=== PATIENT | male | born 1950 | race Caucasian/White ===

== ENCOUNTER → 2019-07-25 13:43 | Outpatient (BNVA) | payer MEDICARE, OTHER, SELFPAY | PROVIDERS: Family Provider Family Medicine; PCP Family Medicine; Referring Provider Family Medicine; Visit Provider Internal Medicine Rheumatology | DX: L40.59 Other psoriatic arthropathy (principal); L40.0 Psoriasis vulgaris; Z79.899 Other long term (current) drug therapy; Z79.52 Long term (current) use of systemic steroids | CPT/HCPCS: 99213 ==

== ENCOUNTER 2019-12-13 14:55 | Outpatient (CLI) | payer MEDICARE, OTHER, SELFPAY ==
--- NOTE | 2019-12-13 15:05 | MR_ITS ---
WS: [id number] MRI CERVICAL SPINE HISTORY: CERVICAL RADICULITIS, LEFT ARM WEAKNESS COMPARISON: 01/22/2014 Prior anterior cervical fusion at C5-C6. Interbody spacer at C5-6. Moderate disc space narrowing at C 6-7. There is slight increase in the cervical lordosis. No fractures. Signal within the cervical cord is normal. Visualized posterior fossa is unremarkable. Craniocervical junction, C1 and C2 relationship, odontoid process and soft tissues are normal. C2-C3: Mild small foraminal osteophytes without stenosis. C3-C4: Mild osteophytic ridging with a central disc osteophyte encroaching on the ventral thecal sac. Facet joint arthropathy and ligamentum flavum hypertrophy encroaching posteriorly. There is signific ant central with mild bilateral foraminal stenosis. Progressed since 2013. C4-C5: Small bilateral foraminal osteophytes. Mild stenosis on the LEFT. C5-C6: Mild osteophytic ridging and disc bulging. Small central disc protrusion contacting the ventra l thecal sac. Mild central and bilateral foraminal stenosis. C6-C7: Osteophytic ridging and facet joint arthritis. Mild central and bilateral foraminal stenosis. C7-T1: Normal. Paraspinal soft tissue are normal. MR/MR cervical spin wo con* [id number] IMPRESSION: 1. Severe central stenosis with mild bilateral foraminal stenosis at C3-4 with progression since 2013. 2. Prior anterior cervical fusion with interbody spacer at C5-6 is stable. 3. Mild central and bilateral foraminal stenosis at C5-6 and C6-7.
== END 2019-12-13 14:56 | disposition home or self-care (01) ==
LOC: RADSHAW 14:55
PROVIDERS: PCP Family Medicine; Visit Provider Physical Medicine & Rehabilitation
DX: M54.12 Radiculopathy, cervical region (principal); R29.898 Other symptoms and signs involving the musculoskeletal system; R53.1 Weakness; M48.02 Spinal stenosis, cervical region; M43.22 Fusion of spine, cervical region
CPT/HCPCS: 72141

== ENCOUNTER → 2020-04-01 10:55 | Outpatient (BNVA) | payer MEDICARE, OTHER, SELFPAY | PROVIDERS: PCP Family Medicine; Visit Provider Internal Medicine Rheumatology | DX: Z79.899 Other long term (current) drug therapy (principal) | CPT/HCPCS: 36415; 80076; 82306; 82565; 85025; 85651; 86140 ==

== ENCOUNTER → 2020-05-19 13:10 | Outpatient (BNVA) | payer MEDICARE, OTHER, SELFPAY | PROVIDERS: PCP Family Medicine; Visit Provider Internal Medicine Rheumatology | DX: L40.59 Other psoriatic arthropathy (principal); L40.0 Psoriasis vulgaris; Z79.899 Other long term (current) drug therapy; Z79.52 Long term (current) use of systemic steroids; K13.0 Diseases of lips; R68.2 Dry mouth, unspecified; Z87.891 Personal history of nicotine dependence | CPT/HCPCS: 99214 ==

== ENCOUNTER → 2020-09-07 09:29 | Outpatient (BNVA) | payer MEDICARE, OTHER, SELFPAY | PROVIDERS: PCP Family Medicine; Visit Provider Internal Medicine Rheumatology | DX: Z79.899 Other long term (current) drug therapy (principal); L40.0 Psoriasis vulgaris | CPT/HCPCS: 36415; 80076; 82565; 85025; 86140 ==

== ENCOUNTER 2020-09-08 10:09 | Outpatient (CLI) | payer MEDICARE, BC, SELFPAY ==
--- NOTE | 2020-09-08 10:23 | XRR_ITS ---
PROCEDURE INFORMATION: Exam: XR Cervical Spine Exam date and time: 09/08/2020 10:25 AM Age: 70 years old Clinical indication: Condition or disease; Other: Arthrodesis status/s/p fusion; Prior surgery TECHNIQUE: Imaging protocol: XR of the cervical spine. Views: 2 or 3 views. COMPARISON: MR cervical spin wo con* [id number] 12/13/2019 3:19 PM FINDINGS: Bones/joints: The patient has undergone surgical anterior fusion at C3-C4 and C5-C6 with anterior metal plate and vertebral body screws. Position and alignment appears satisfactory. No fracture or other acute abnormalities are seen. Chronic degenerative changes are present predominantly at the L6-7 disc space and in the cervical facet joints. Soft tissues: Unremarkable. XR/XR cervical spine 3V* [id number] IMPRESSION: 1. Satisfactory appearance of the anterior surgical fusion at C3-C4 and C5-C6. 2. Chronic degenerative disease. No acute abnormality.
== END 2020-09-08 10:10 | disposition home or self-care (01) ==
PROVIDERS: PCP Family Medicine; Visit Provider Physician Assistant Surgical
DX: Z98.1 Arthrodesis status (principal)
CPT/HCPCS: 72040

== ENCOUNTER 2021-01-06 09:55 | Outpatient (CLI) | payer MEDICARE, BC, SELFPAY ==
--- NOTE | 2021-01-06 10:15 | MR_ITS ---
WS: [id number] MRI LUMBAR SPINE NONCONTRAST TECHNIQUE: Sagittal T1, T2 and STIR imaging. Axial T1 and T2 imaging. CLINICAL INFORMATION: ROUTINE, LOW BACK AND LOWER EXTREMITY PAIN; LBP; RADICULOPAT COMPARISON: MRI 5 FINDINGS: Mild lumbar curve. No acute compression. Disc bulging worse at L3-L4 L4-L5. Schmorl's nodes in the lo wer thoracic spine. L1-L2: No significant disc bulging. Spinal canal and foramen are patent. L2-L3: Mild annular bulging. Slight effacement of ventral thecal sac. Mild left and no significant ri ght foraminal narrowing. Mild facet arthropathy. L3-L4: Mild disc bulging with osteophytic ridging. Right pericentral disc extrusion with caudal migra tion of disc material in the subarticular recess. Moderate central canal stenosis at this level with moderate facet arthropathy and ligament flavum hypertrophy. Impingement traversing L4 nerve roots yumiko aterally. Disc extrusion impinges the traversing right L4 nerve root. Disc extrusion measures 10.9 x 6.4 mm. Right foraminal protrusion with mild to moderate right and mild left foraminal narrowing. L4-L5: Mild disc bulging with a shallow left pericentral protrusion. Mild to moderate central canal s tenosis with impingement traversing left L5 nerve root. Moderate facet arthropathy. Moderate left and no significant right foraminal narrowing. L5-S1: Annular bulging with a tiny shallow central protrusion. Slight effacement of ventral thecal sa c. Moderate facet arthropathy. Moderate bilateral foraminal narrowing left greater than right. Postoperative changes ACDF in the cervical spine partially visualized at C3-C4 and C5-C6. Compared to 2014 disc bulging is progressed at L3-4 with more loss of disc space height. L3-4 disc ex trusion is new. Left pericentral L4-5 disc protrusion is similar compared to 2014. MR/MR lumbar spine wo con* [id number] IMPRESSION: 1. Mild lumbar curve. No acute compression. 2. New right pericentral disc extrusion L3-4 with inferior migration of disc m aterial. This impinges the right subarticular recess and traversing right L4 ne rve root. Moderate central canal stenosis. Disc extrusion measures 10.9 x 6.4 m m and extends to the inferior endplate of L4. 3. Shallow left pericentral protrusion L4-5 with mild to moderate central [place] l stenosis and impingement traversing left L5 nerve root. This is similar to 20 14. 4. Multilevel mild to moderate foraminal narrowing worse at right L3-4, left L 4-5, and bilateral L5-S1.
== END 2021-01-06 09:56 | disposition home or self-care (01) ==
PROVIDERS: PCP Family Medicine; Visit Provider Physician Assistant Surgical
DX: M54.10 Radiculopathy, site unspecified (principal); M51.26 Other intervertebral disc displacement, lumbar region; M48.02 Spinal stenosis, cervical region
CPT/HCPCS: 72148

== ENCOUNTER → 2021-08-04 10:43 | Outpatient (BNVA) | payer MEDICARE, BC, SELFPAY | PROVIDERS: PCP Family Medicine; Visit Provider Podiatrist Foot & Ankle Surgery | DX: M19.072 Primary osteoarthritis, left ankle and foot (principal); M19.071 Primary osteoarthritis, right ankle and foot; M79.671 Pain in right foot; M79.672 Pain in left foot | CPT/HCPCS: 73630 ==

== ENCOUNTER 2022-08-04 14:23 | Outpatient (CLI) | payer MEDICARE, BC, SELFPAY ==
--- NOTE | 2022-08-04 | XR_ITS ---
WS: [id number] Cervical spine, AP view, lateral views in flexion, extension and neutral position, 08/04/2022 Clinical Data: CERVICALGIA Comparison: Cervical spine, 09/08/2020 Findings: The anterior cervical disc fusion at C3-C4 with artificial disc and the anterior cervical d isc fusion at C5-C6 with an artificial disc remain the same. There is no prevertebral soft tissue swe lling. On flexion and extension the fusions are stable. XR/XR cervical spine 4-5V [id number] Impression: 1. Anterior cervical disc fusions at C3-C4 and C5-C6. 2. The anterior cervical disc fusions are stable on flexion and extension.
== END 2022-08-04 14:24 | disposition home or self-care (01) ==
PROVIDERS: PCP Family Medicine; Visit Provider Nurse Practitioner Family
DX: M43.22 Fusion of spine, cervical region (principal); Z98.1 Arthrodesis status
CPT/HCPCS: 72050

== ENCOUNTER → 2023-02-02 12:37 | Outpatient (BNVA) | payer MEDICARE, BC, SELFPAY | PROVIDERS: PCP Family Medicine; Visit Provider Podiatrist Foot & Ankle Surgery | DX: L40.59 Other psoriatic arthropathy (principal); M72.2 Plantar fascial fibromatosis; G57.63 Lesion of plantar nerve, bilateral lower limbs; M20.41 Other hammer toe(s) (acquired), right foot; M20.42 Other hammer toe(s) (acquired), left foot | CPT/HCPCS: 73630; 99213 ==

== ENCOUNTER → 2023-04-03 12:52 | Outpatient (BNVA) | payer MEDICARE, BC, SELFPAY | PROVIDERS: PCP Family Medicine; Visit Provider Podiatrist Foot & Ankle Surgery | DX: G57.63 Lesion of plantar nerve, bilateral lower limbs (principal); M72.2 Plantar fascial fibromatosis; M76.72 Peroneal tendinitis, left leg; L40.59 Other psoriatic arthropathy; M20.41 Other hammer toe(s) (acquired), right foot; M20.42 Other hammer toe(s) (acquired), left foot | CPT/HCPCS: 20550; 64455; J1100; J3301; J3490 ==

== ENCOUNTER → 2023-08-30 08:21 | Outpatient (BNVA) | payer MEDICARE, BC, SELFPAY | PROVIDERS: PCP Family Medicine; Visit Provider Internal Medicine Rheumatology | DX: Z79.899 Other long term (current) drug therapy (principal); L40.59 Other psoriatic arthropathy; L40.0 Psoriasis vulgaris; Z71.89 Other specified counseling | CPT/HCPCS: 99214 ==

== ENCOUNTER 2023-08-31 13:47 | Oncology outpatient (recurring) (ONCR) | payer MEDICARE, BC, SELFPAY ==
[2023-07-06 14:19] VITALS: BP 137/69; PULSE 71; RESP 18; TEMP 36.7; O2SAT 97
[2023-07-06] MEDS: acetaminophen 325 mg Tablet 650 MG PO (14:29)
[2023-07-06] MEDS: diphenhydrAMINE 50 mg/mL SDV 1mL 25 MG IVP (14:30)
[2023-07-06] MEDS: sodium chloride 0.9% 250 ML 75 ML IV (14:31)
[2023-07-06] MEDS: methylPREDNISolone sod succ 40 mg/mL INJ IVP (14:31)
[2023-07-06] MEDS: GOLIMUMAB IV (14:56)
[2023-07-06] MEDS: SODIUM CHLORIDE 0.9% IV (14:56)
[2023-07-06 15:50] VITALS: BP 120/78; PULSE 75; RESP 18; TEMP 36.6; O2SAT 98
[2023-08-31 14:12] VITALS: BP 148/74; PULSE 84; RESP 16; TEMP 36.8; O2SAT 95
[2023-08-31] MEDS: acetaminophen 325 mg Tablet 650 MG PO (14:38)
[2023-08-31] MEDS: diphenhydrAMINE 50 mg/mL SDV 1mL 25 MG IVP (14:39)
[2023-08-31] MEDS: methylPREDNISolone sod succ 40 mg/mL INJ IVP (14:52)
[2023-08-31] MEDS: sodium chloride 0.9% 250 ML 75 ML IV (14:52)
[2023-08-31] MEDS: GOLIMUMAB IV (14:57)
[2023-08-31] MEDS: SODIUM CHLORIDE 0.9% IV (14:57)
[2023-08-31 15:30] VITALS: BP 143/63; PULSE 78; RESP 18; TEMP 36.6; O2SAT 99
== END 2023-08-31 23:59 | disposition home or self-care (01) ==
PROVIDERS: PCP Family Medicine; Visit Provider Internal Medicine Rheumatology
DX: L40.0 Psoriasis vulgaris (principal); Z79.899 Other long term (current) drug therapy; L40.59 Other psoriatic arthropathy; Z71.89 Other specified counseling
CPT/HCPCS: 96365; 96375; 96413; 99214; A4222; J1200; J1602; J2920; J7050

== ENCOUNTER → 2023-09-07 11:08 | Outpatient (BNVA) | payer MEDICARE, BC, SELFPAY | PROVIDERS: PCP Family Medicine; Visit Provider Podiatrist Foot & Ankle Surgery | DX: M72.2 Plantar fascial fibromatosis (principal); G57.63 Lesion of plantar nerve, bilateral lower limbs; M76.72 Peroneal tendinitis, left leg; L40.59 Other psoriatic arthropathy; M20.41 Other hammer toe(s) (acquired), right foot; M20.42 Other hammer toe(s) (acquired), left foot | CPT/HCPCS: 20550; J1100; J3301 ==

== ENCOUNTER → 2023-11-16 12:40 | Outpatient (BNVA) | payer MEDICARE, BC, SELFPAY | PROVIDERS: PCP Family Medicine; Visit Provider Podiatrist Foot & Ankle Surgery | DX: M72.2 Plantar fascial fibromatosis (principal); G57.63 Lesion of plantar nerve, bilateral lower limbs; L40.59 Other psoriatic arthropathy; M20.41 Other hammer toe(s) (acquired), right foot; M20.42 Other hammer toe(s) (acquired), left foot | CPT/HCPCS: 20550; 64455; J1100; J3301; J3490 ==

== ENCOUNTER → 2024-02-14 12:33 | Outpatient (BNVA) | payer MEDICARE, BC, SELFPAY | PROVIDERS: PCP Family Medicine; Visit Provider Internal Medicine Rheumatology | DX: L40.59 Other psoriatic arthropathy (principal); L40.0 Psoriasis vulgaris; Z79.899 Other long term (current) drug therapy; Z71.85 Encounter for immunization safety counseling; K13.0 Diseases of lips | CPT/HCPCS: 99215 ==

== ENCOUNTER 2024-02-19 10:59 | Outpatient (CLI) | payer MEDICARE, BC, SELFPAY ==
[2024-02-19 11:34] LABS: Basophils # 0.1 10^3/uL (0.0-0.1); Basophils % 1.1 %; Eosinophils % 0.2 %; Hematocrit 41.2 % (37-53); Lymphocytes # 2.2 10^3/uL (0.8-4.8); Lymphocytes % 25.7 %; Mean Corpuscular HGB Conc 31.6 g/dL (30-55); Mean Corpuscular Hemoglobin 31.8 pg (27-33); Mean Corpuscular Volume 100.7 fl (82-101); Mean Platelet Volume 10.6 fL (7.4-10.4); Monocytes % 11.5 %; Neutrophils # 4.95 10^3/uL (1.8-7.7); Neutrophils % 59.1 %; Nucleated Red Blood Cells % 0 %; Platelet Count 285 10^3/cmm (157-399); Red Blood Count 4.09 10^6/uL (3.85-5.65); Red Cell Distribution Width 13.1 % (12.1-15.1); White Blood Count 8.37 10^3/uL (3.29-11.43)
[2024-02-19 11:58] LABS: Erythrocyte Sedimentation Rate 11 mm/hr (0-10)
[2024-02-19 12:02] LABS: Alanine Aminotransferase 27 U/L (0-41); Albumin Level 3.9 g/dL (3.5-5.2); Alkaline Phosphatase 100 U/L (40-130); Aspartate Amino Transferase 21 U/L (0-40); Globulin 2.2 g/dL (1.3-4.6); Total Bilirubin 0.2 mg/dL (0.15-1.2); Total Protein 6.1 g/dL (6.6-8.7)
== END 2024-02-19 11:00 | disposition home or self-care (01) ==
LOC: LAB 11:04
PROVIDERS: PCP Family Medicine; Visit Provider Internal Medicine Rheumatology
DX: L40.59 Other psoriatic arthropathy (principal); Z79.899 Other long term (current) drug therapy
CPT/HCPCS: 36415; 80076; 82565; 85025; 85651; 86140

== ENCOUNTER → 2024-05-23 12:58 | Outpatient (BNVA) | payer MEDICARE, BC, SELFPAY | PROVIDERS: PCP Family Medicine; Visit Provider Nurse Practitioner Family | DX: B35.4 Tinea corporis (principal); L82.1 Other seborrheic keratosis; L60.3 Nail dystrophy; L57.8 Other skin changes due to chronic exposure to nonionizing radiation; Z85.828 Personal history of other malignant neoplasm of skin | CPT/HCPCS: 11102; 17004; 99203 ==

== ENCOUNTER → 2024-06-12 13:56 | Outpatient (BNVA) | payer MEDICARE, BC, SELFPAY | PROVIDERS: PCP Family Medicine; Visit Provider Dermatology | DX: L73.2 Hidradenitis suppurativa (principal); L57.0 Actinic keratosis; L30.9 Dermatitis, unspecified; L72.0 Epidermal cyst | CPT/HCPCS: 10060; 11106; 17004; 99214 ==

== ENCOUNTER → 2024-07-10 12:39 | Outpatient (BNVA) | payer MEDICARE, BC, SELFPAY | PROVIDERS: PCP Family Medicine; Visit Provider Dermatology | DX: L73.2 Hidradenitis suppurativa (principal); L85.3 Xerosis cutis; B35.4 Tinea corporis; D48.5 Neoplasm of uncertain behavior of skin; R23.8 Other skin changes; R20.8 Other disturbances of skin sensation; L53.8 Other specified erythematous conditions; L30.9 Dermatitis, unspecified; L57.0 Actinic keratosis | CPT/HCPCS: 11106; 11402; 11900; 12031; 17000; 99214 ==

== ENCOUNTER 2024-08-06 08:22 | Outpatient (CLI) | payer MEDICARE, BC, SELFPAY ==
[2024-08-06 08:43] VITALS: BMI 25.0
--- NOTE | 2024-08-06 08:43 | USCV_ITS ---
Darryn Matos Age: 74 Gender: M : 1950 Exam Date: 08/06/2024 08:55 Ordering Phys: Inder Torres MD Technologist: Exam Location: [facility] [place] Indication: cp BP: 134 / 75 HR: 84 Rhythm: Sinus Technical Quality: Adequate MEASUREMENTS (Male / Female) Normal Values 2D ECHO LV Diastolic Diameter PLAX 3.5 cm 4.2 - 5.9 / 3.9 - 5.3 cm IVS Diastolic Thickness 1.4 cm 0.6 - 1.0 / 0.6 - 0.9 cm IVS Systolic Thickness 1.8 cm LVPW Diastolic Thickness 1.3 cm 0.6 - 1.0 / 0.6 - 0.9 cm LVPW Systolic Thickness 1.5 cm LVOT Diameter 2.0 cm LV Ejection Fraction 2D Teich 67.0 % LV Ejection Fraction MOD 4C 65.7 % LV Ejection Fraction MOD 2C 61.5 % LV Ejection Fraction 2C AL 61.5 % LA Diameter 4.1 cm RA Systolic Volume 4C AL 32.7 ml RA Systolic Volume 4C MOD 32.6 ml Aorta at Sinotubular Diameter 2.8 cm M-MODE LA Ao Ratio MM 1.1 AV Cusp Separation MM 1.8 cm DOPPLER AV Peak Velocity 89.0 cm/s LVOT Peak Velocity 59.0 cm/s AV Area Cont Eq vti 3.1 cm squared AV Area Cont Eq pk 2.2 cm squared MV Area PHT 5.3 cm squared Mitral E to A Ratio 1.8 TV Peak Velocity 198.0 cm/s TR Peak Velocity 221.0 cm/s TR Peak Gradient 19.5 mmHg TV Peak E Velocity 99.0 cm/s PV Peak Velocity 68.0 cm/s FINDINGS Left Ventricle Left ventricle is normal in size. LV systolic function is normal with EF of 55-60%. No regional wall motion abnormalities are seen. Moderate left ventricular hypertrophy. Right Ventricle Grossly normal Right Atrium Normal in size Left Atrium Normal in size Mitral Valve Structurally normal mitral valve. Mild mitral regurgitation. Aortic Valve Structurally normal aortic valve. No significant stenosis or regurgitation. Tricuspid Valve Mild tricuspid regurgitation. Pulmonary artery systolic pressure is normal. Pulmonic Valve Not well visualized Pericardium Normal Aorta Normal in size IVC Not well visualized CONCLUSIONS LV systolic function is normal with EF of 55-60%. Moderate left ventricular hypertrophy. Mild mitral regurgitation Mild tricuspid regurgitation Anish Sutherland MD (Electronically Signed) Final Date: 07 August 2024 09:12 S
--- NOTE | 2024-08-06 08:43 | NMCV_ITS ---
NM jaime perf SPECT r/s* [id number] Darryn Matos Age: 74 Gender: M : 1950 Exam Date: 08/06/2024 08:43 Ordering Phys: Inder Torres MD Technologist: SIDRA Joy Exam Location: [facility] Indications: cp STRESS TEST Please see separate stress test report in [facility] for full findings IMAGE PROTOCOL Rest/Stress 1 Lexiscan Day Radiopharmaceutical Dose (mCi) Administration Site Administered by Rest: Tc-99m 11 IV Candi Sue, [employer] Sestamibi Stress:Tc-99m 32.7 IV Candi Sue, [employer] Sestamibi Rest: 06-Aug-2024 60 Discovery 630 Stress: 06-Aug-2024 30 Discovery 630 0.4mg Lexiscan. Images obtained in supine and prone position. SPECT RESULTS Technical Quality: Good Raw Data Analysis: Normal Image Corrections: No attenuation or motion correction applied Summed Stress Score: 2 Summed Rest Score: 1 Summed Difference Score: 1 PERFUSION FINDINGS There is small sized area of reduced radiotracer uptake in the apical lateral wall. This resolves on prone imaging. Likely attenuation artifact. FUNCTIONAL RESULTS (calculated via Gated SPECT) Stress Image LV EF (%): 66 Stress EDV (mL):76 TID: 1.16 Stress ESV (mL):26 FUNCTIONAL FINDINGS: There is normal left ventricular systolic function. IMPRESSIONS 1. Attenuation artifact is seen in the apical lateral wall. No significant ischemia seen 2. LV systolic function is normal Anish Sutherland MD (Electronically Signed) Final Date: 06 August 2024 20:17 S
[2024-08-06] MEDS: aminophylline 25 mg/mL SDV 20 mL IVP (10:01)
[2024-08-06] MEDS: regadenoson 0.4 Mg/5 ml Syringe IVP (10:03)
[2024-08-06 10:19] VITALS: BP 127/82; PULSE 65
== END 2024-08-06 08:23 | disposition home or self-care (01) ==
LOC: RAD 08:24 → CDL 08:39
PROVIDERS: PCP Family Medicine; Visit Provider Family Medicine
DX: I48.91 Unspecified atrial fibrillation (principal); I34.0 Nonrheumatic mitral (valve) insufficiency; I07.1 Rheumatic tricuspid insufficiency; R93.89 Abnormal findings on diagnostic imaging of other specified body structures
CPT/HCPCS: 36415; 78452; 93017; 93306; 96374; 96375; A9500; J0280; J2785

== ENCOUNTER → 2024-12-10 12:59 | Outpatient (BNVA) | payer MEDICARE, BC, SELFPAY | PROVIDERS: PCP Family Medicine; Visit Provider Dermatology | DX: L73.2 Hidradenitis suppurativa (principal); L73.9 Follicular disorder, unspecified; L90.5 Scar conditions and fibrosis of skin; D48.5 Neoplasm of uncertain behavior of skin; L57.0 Actinic keratosis | CPT/HCPCS: 11102; 17000; 69100; 99214 ==

== ENCOUNTER → 2024-12-25 07:57 | Outpatient (BNVA) | payer MEDICARE, BC, SELFPAY | PROVIDERS: PCP Family Medicine; Visit Provider Dermatology | DX: D04.22 Carcinoma in situ of skin of left ear and external auricular canal (principal); C44.42 Squamous cell carcinoma of skin of scalp and neck | CPT/HCPCS: 13121; 17311; 99213 ==

== ENCOUNTER → 2025-02-20 10:20 | Outpatient (BNVA) | payer MEDICARE, BC, SELFPAY | PROVIDERS: PCP Family Medicine; Visit Provider Dermatology | DX: L73.2 Hidradenitis suppurativa (principal); L90.5 Scar conditions and fibrosis of skin; Z08 Encounter for follow-up examination after completed treatment for malignant neoplasm; Z85.828 Personal history of other malignant neoplasm of skin; D48.5 Neoplasm of uncertain behavior of skin; L30.9 Dermatitis, unspecified; L57.0 Actinic keratosis | CPT/HCPCS: 11104; 17000; 69100; 99214 ==

== ENCOUNTER → 2025-03-11 14:27 | Outpatient (BNVA) | payer MEDICARE, BC, SELFPAY | PROVIDERS: PCP Family Medicine; Visit Provider Internal Medicine Rheumatology | DX: L40.59 Other psoriatic arthropathy (principal); L40.0 Psoriasis vulgaris; Z79.899 Other long term (current) drug therapy; Z71.85 Encounter for immunization safety counseling | CPT/HCPCS: 99214 ==

== ENCOUNTER → 2025-06-17 11:23 | Outpatient (BNVA) | payer MEDICARE, BC, SELFPAY | PROVIDERS: PCP Family Medicine; Visit Provider Internal Medicine Rheumatology | DX: L40.59 Other psoriatic arthropathy (principal); L40.0 Psoriasis vulgaris; Z79.899 Other long term (current) drug therapy; Z71.85 Encounter for immunization safety counseling | CPT/HCPCS: 99214 ==